=== PATIENT | female | born 1985 | race American Indian/Alaskan Native ===

== ENCOUNTER 2016-05-25 16:45 | Outpatient (CLI) | payer OTHER ==
--- NOTE | 2016-06-04 07:29 | Consultation ---
This EEG shows a background rhythm of 8 to 10 cycles per second. Alpha activity is symmetrical. No focal slowing is present. IMPRESSION: Normal-appearing EEG. JOB# [id number] JASKARAN/[id number]
== END 2016-05-25 16:46 | disposition home or self-care (01) ==
LOC: CARD 16:45
PROVIDERS: ATTEND Psychiatry & Neurology Psychiatry
DX: Z01.89 Encounter for other specified special examinations (principal)
CPT/HCPCS: 95819